=== PATIENT | male | born 1940 | race Caucasian/White ===

== ENCOUNTER → 2016-07-30 | Outpatient (CLI) | payer OTHER ==
[~2016-07-30] MED LIST: CRFUDL PO; DONE10TA12 PO; FERR325T5 PO; LISI-729 PO; METO25TA3 PO; NMN10 PO; PARO10TA3 PO; PRT40 PO; SIMV20TA2 PO; TOBRSUS33 OP
[2016-07-30 15:27] LABS: BASO % 0.3 %; BASO ABS # 0.03 K/uL (0-0.2); EOS % 2.2 %; HEMATOCRIT 27.4 % (42-52); IG% 0.3 %; LYMPH % 12.5 %; LYMPH ABS # 1.19 K/uL (1.2-3.4); MEAN CELL VOLUME 83.8 fL (80-100); MEAN PLATELET VOLUME 11.2 fL (7.4-10.4); MONO % 10.2 %; NEUT % 74.5 %; PLATELET COUNT 214 K/uL (130-400); RED BLOOD COUNT 3.27 M/uL (4.7-6.1); WHITE BLOOD COUNT 9.54 K/uL (4.8-10.8)
[2016-07-30 15:48] LABS: ALT/SGPT 21 U/L (12-78); BLOOD UREA NITROGEN 15 mg/dl (7-18); BUN/CREATININE RATIO 15.5 (10-20); CALCIUM 7.7 mg/dl (8.5-10.1); CARBON DIOXIDE 26 mmol/L (21-32); CHLORIDE 108 mmol/L (98-107); GLUCOSE 116 mg/dl (70-99); SODIUM 141 mmol/L (136-145)
[2016-07-30 15:58] LABS: ALB/GLOB RATIO 0.9 (0.9-2); ALKALINE PHOSPHATASE 86 U/L (45-117); AST/SGOT 11 U/L (15-37)
[2016-07-30 15:59] LABS: COMPLETE YES; LARGE PLATELETS 1+
== END | disposition home or self-care (01) ==
LOC: C.LABSPEC 14:56
PROVIDERS: ATTEND Internal Medicine
DX: R53.83 Other fatigue (principal); R60.9 Edema, unspecified